=== PATIENT | male | born 1980 | race Two or more races ===

== ENCOUNTER 2017-04-05 20:13 | Emergency (ER) | payer SELFPAY ==
[2017-04-05 20:24] VITALS: BP 105/74; BMI 28.1
[2017-04-05] MEDS ORDERED: ZOFRAN INJ 4 MG VIAL IVP ONE (20:59)
[2017-04-05] MEDS ORDERED: NS 1000 ML 1,000 ML IV ONE (20:59)
[2017-04-05] MEDS ORDERED: PEPCID 20 MG IV PREMIX* 20 MG/50 ML BAG IV ONE ×2 (21:00→21:12)
--- NOTE | 2017-04-05 21:00 | DR.GENAD ---
HPI - PCP Primary Care Physician: NFD - HPI Comment HPI Comment: PATIENT DENIES BEING AROUND SOME ONE WITH SIMILAR SYMTOMS. NO RECENT TRAVEL. NOT HOLDING DOWN LIQUID. FEELS SICK AND WEAK.PATIENT HAVE HEADACHE, COUGHING AND SLIGHT CONGESTION. - Complaint/Symptoms Chief Complaint Doctors Comments: FEVER, NAUSEA, VOMITING TIMES ONE DAY. WORSE TONIGHT. Chief Complaint:: PATIENT HAS N/V/D AND GENERAL MALAISE - Nurses notes reviewed Nurses Notes Review: Yes - Source History Provided: Patient - Mode of Arrival Mode of Arrival: Ambulatory - Timing Onset of Chief Complaint: 04/05/17 Came on: Suddenly - Duration Duration: Constant Duration: Hours - Severity Severity: Moderate PMH - PMH Past Medical History: No Past Surgical History: No - Family History History of Family Medical Conditions: No - Social History Does patient currently use any type of tobacco product: No Have you used tobacco products in the last 12 months: No Type of Tobacco Use: None Does any household member use tobacco: No Alcohol Use: Occasionally Do you use any recreational Drugs:: No Lives With: Family Lives Where: Home - infectious screening In the last 2 months have you had wt loss of >10#?: NO Have you had fever, night sweats or hemotysis?: No Have you traveled outside the country in the last 6 months?: No Isolation: Standard ROS - Review of Systems Constitutional: Fever, Malaise, Weakness, Fatigue. negative: Chills, Diaphoresis Eyes: No Symptoms Reported. negative: Eye Pain, Discharge ENTM: Nose Congestion. negative: Ear Pain, Nose Discharge, Throat Pain Respiratoy: Productive Cough. negative: Non-Productive Cough, Short of Breath, Wheezing, Hemoptysis Cardiovascular: No Symptoms Reported. negative: Chest Pain Gastrointestinal/Abdominal: Abdominal Pain, Nausea, Vomiting. negative: Constipation, Diarrhea Genitourinary: No Symptoms Reported. negative: Dysuria, Frequency, Hematuria Neurological: Headache, Weakness. negative: Dizziness Musculoskeletal: Muscle Pain Integumentary: No Symptoms Reported Hematologic/Lymphatic: No Symptoms Reported Endocrine: No Symptoms Reported All Other Systems: Reviewed and Negative PE - Vital Signs Vitals: Temperature 101.5 F Pulse Rate 117 Respiratory Rate 22 Blood Pressure 105/74 O2 Sat by Pulse Oximetry 98 - General Limitations: No Limitations General Appearance: Alert - Head Head Exam: Normal Inspection - Eyes Eye exam: Normal Appearance - ENT ENT Exam: Normal External Ear Exam TM/Canal Exam: Bilateral Bulging Nose Exam: Normal Nose Exam Mouth Exam: Normal Inspection Throat Exam: Tonsillar Erythema. negative: Tonsillomegaly, Tonsillar Exudate - Neck Neck Exam: Trachea Midline - Chest Chest Inspection: Symmetric Chest Wall Rise - Respiratory Respiratory Exam: Normal Lung Sounds Bilat Respiratory Exam: Bilateral Clear to Auscultation - Cardiovascular Cardiovascular Exam: Regular Rate, Normal Rhythm, Normal Heart Sounds - Abdominal Exam Abdominal Exam: Normal Bowel Sounds, Soft. negative: Tenderness - Extremities Extremities Exam: Normal Inspection - Back Back Exam: Normal Inspection - Neurologic Neurological Exam: Alert, Oriented X3 - Skin Skin Exam: Normal Color MDM - Differential Diagnosis Differential Diagnosis: GASTRITIS, GASTROENTERITIS, BOWEL OBSTRUCTION, SINUSITIS , PHARYNGITIS Course - Treatment Treatment: SEE ORDERS. - Education/Counseling Education/Counseling: Patient, Education Educated On: Treatment, Diagnosis, Needs for Follow Up ROR - Labs Reviewed Laboratory Results Reviewed?: Yes Result Diagrams: 04/05/17 21:10 04/05/17 21:10 Laboratory: 04/05/17 21:10 Blood Blood Culture - Preliminary 04/05/17 21:13 Blood Blood Culture - Preliminary WBC 6.6 X10^3/uL (3.6-10.0) 04/05/17 21:10 RBC 5.99 X10^6/uL (4.7-6.0) 04/05/17 21:10 Hgb 18.0 g/dL (13.5-18.0) 04/05/17 21:10 Hct 50.5 % (42.0-54.0) 04/05/17 21:10 MCV 84.3 fL (80.0-100.0) 04/05/17 21:10 MCH 30.0 pg (27.0-34.0) 04/05/17 21:10 MCHC 35.6 g/dL (33.0-35.0) H 04/05/17 21:10 RDW 13.6 % (11.6-16.5) 04/05/17 21:10 Plt Count 238 X10^3/uL (150.0-450.0) 04/05/17 21:10 MPV 8.1 fL (7.4-11.0) 04/05/17 21:10 Neut % 80.9 % (42.0-75.0) H 04/05/17 21:10 Lymph % 11.7 % (21.0-51.0) L 04/05/17 21:10 Garfield % 7.2 % (0.0-13.0) 04/05/17 21:10 Eos % 0.0 % (0.9-2.9) L 04/05/17 21:10 Baso % 0.2 % (0.2-1.0) 04/05/17 21:10 Neut # 5.4 x10^3/uL (2.2-4.8) H 04/05/17 21:10 Lymph # 0.8 X10^3/uL (1.3-2.9) L 04/05/17 21:10 Garfield # 0.5 x10^3/uL (0.3-0.8) 04/05/17 21:10 Eos # 0.0 x10^3/uL (0.0-0.2) 04/05/17 21:10 Baso # 0.0 X10^3/uL (0.0-0.1) 04/05/17 21:10 Absolute Nucleated RBC 0.3 /100WBC 04/05/17 21:10 Sodium 134 mmol/L (136-145) L 04/05/17 21:10 Corrected Sodium 135 mmol/L (136-145) L 04/05/17 21:10 Potassium 3.0 mmol/L (3.5-5.1) L* 04/05/17 21:10 Chloride 97 mmol/L (98-107) L 04/05/17 21:10 Carbon Dioxide 24.8 mmol/L (21-32) 04/05/17 21:10 BUN 23 mg/dL (7-18) H 04/05/17 21:10 Creatinine 1.58 mg/dL (0.70-1.30) H 04/05/17 21:10 Est GFR (MDRD) Af Amer > 60 (>60) 04/05/17 21:10 Est GFR (MDRD) Non-Af 52 (>60) L 04/05/17 21:10 Glucose 124 mg/dL (65-99) H 04/05/17 21:10 Calcium 8.6 mg/dL (8.5-10.1) 04/05/17 21:10 Corrected Calcium TNP 04/05/17 21:10 Total Bilirubin 1.50 mg/dL (0.2-1.0) H 04/05/17 21:10 AST 31 Units/L (15-37) 04/05/17 21:10 ALT 86 Units/L (12-78) H 04/05/17 21:10 Alkaline Phosphatase 63 Units/L (46-116) 04/05/17 21:10 Total Protein 8.4 g/dL (6.4-8.2) H 04/05/17 21:10 Albumin 3.9 g/dL (3.4-5.0) 04/05/17 21:10 Globulin 4.5 g/dL (2.5-4.5) 04/05/17 21:10 Albumin/Globulin Ratio 0.9 Ratio (1.1-2.1) L 04/05/17 21:10 Amylase 28 Units/L (25-115) 04/05/17 21:10 Lipase 58 Units/L (73-393) L 04/05/17 21:10 Streptococcus Screen Positive (NEGATIVE) A 04/05/17 22:49 - XRAY XRAY Interpreted by: Radiologist XRAY Findings: REPORT DISCUSS WITH PATIENT. - Diagnosis Discharge Problem: Strep pharyngitis, Bronchitis, Hepatic steatosis Gastritis Qualifiers: Gastritis type: unspecified gastritis Chronicity: unspecified Gastritis bleeding: without bleeding Qualified Code(s): K29.70 - Gastritis, unspecified, without bleeding - Discharge Plan Disposition: HOME, SELF-CARE Condition: Stable Prescriptions: Amoxicillin [Amoxil 875 mg] 875 mg PO BID #20 tab Ondansetron HCl [Zofran Tab 4 mg] 4 mg PO Q8H PRN #12 tab PRN Reason: Nausea/Vomiting Ranitidine HCl [ZANTAC TAB 150 MG *] 150 mg PO DAILY #30 tab - Follow ups/Referrals Follow ups/Referrals: NFD,None [Primary Care Provider] - 3 days - Instructions Instructions: Strep Throat, Gastritis, Adult, [id number], Nausea and Vomiting , Adult, [id number] Additional Instructions: RETURN TO ED IF WORSE.
[2017-04-05] MEDS ORDERED: DEMEROL INJ IVP ONE (21:02)
[2017-04-05] MEDS ORDERED: TYLENOL 500 MG TAB EXTRA STRENGTH PO ONE (21:02)
[2017-04-05] MEDS ORDERED: ZOFRAN INJ 4 MG VIAL ONE (21:12)
[2017-04-05] MEDS ORDERED: NS 1000 ML 1,000 ML ONE (21:12)
[2017-04-05] MEDS ORDERED: DEMEROL INJ ONE (21:13)
[2017-04-05] MEDS ORDERED: TYLENOL 500 MG TAB EXTRA STRENGTH ONE (21:13)
[2017-04-05 21:25] LABS: LYMPHOCYTES # (AUTO) 0.8 X10^3/uL (1.3-2.9); MONOCYTES # (AUTO) 0.5 x10^3/uL (0.3-0.8)
[2017-04-05 21:35] LABS: BLOOD UREA NITROGEN 23 mg/dL (7-18); CALCIUM 8.6 mg/dL (8.5-10.1); CARBON DIOXIDE 24.8 mmol/L (21-32); CHLORIDE 97 mmol/L (98-107); COR NA(FOR HYPERGLY) 135 mmol/L (136-145); CREATININE 1.58 mg/dL (0.70-1.30); GLUCOSE 124 mg/dL (65-99); SODIUM 134 mmol/L (136-145); eGFR BLACK RACES > 60 (>60); eGFR NON BLACK RACES 52 (>60)
--- NOTE | 2017-04-05 21:36 | CT ---
CT abdomen and pelvis without contrast Indication: Nausea vomiting and diarrhea Comparison: None available Technique: Multiple axial images of the abdomen and pelvis were obtained from the lung bases to the pubic symph ysis without the administration of IV contrast. Radiation dose reduction techniques were performed utilizing adjustment for MA/kVP based on patient body size. Findings: The lung bases demonstrate scarring/atelectasis within both lower lobes. Moderate hepatic steatosis without focal hepatic lesion identified. The gallbladder, bile ducts, spleen, pancreas and adrenal g lands are normal. Neither kidney demonstrates evidence of nephrolithiasis, hydronephrosis or mass. U pper GI tract demonstrates mild fluid distension of the small bowel without distal decompression. Ur inary bladder is normal. Prostate gland is unremarkable. The rectum and colon are unremarkable aside for mild increased fluid within the proximal colon. The appendix is normal. No pelvic free fluid or adenopathy. Abdominal aorta is normal in caliber. Review of bone windows demonstrates no acute osse ous abnormality. Impression: 1.Moderate fluid distension of the entire small bowel without distal decompression along with mild f luid distension of the proximal colon is most consistent with acute enterocolitis. There is no CT ev idence of obstruction. 2. Moderate hepatic steatosis. Reported By:
[2017-04-05 21:39] LABS: ALANINE AMINOTRANSFERASE 86 Units/L (12-78); ALBUMIN 3.9 g/dL (3.4-5.0); ALKALINE PHOSPHATASE 63 Units/L (46-116); AMYLASE 28 Units/L (25-115); ASPARTATE AMINO TRANSFERASE 31 Units/L (15-37); LIPASE 58 Units/L (73-393); TOTAL PROTEIN 8.4 g/dL (6.4-8.2)
[2017-04-05 21:49] LABS: BASOPHILS % (AUTO) 0.2 % (0.2-1.0); HEMATOCRIT 50.5 % (42.0-54.0); LYMPHOCYTES % (AUTO) 11.7 % (21.0-51.0); MEAN CORPUSCULAR HGB CONC 35.6 g/dL (33.0-35.0); MEAN CORPUSCULAR VOLUME 84.3 fL (80.0-100.0); MEAN PLATELET VOLUME 8.1 fL (7.4-11.0); MONOCYTES % (AUTO) 7.2 % (0.0-13.0); NEUTROPHILS # (AUTO) 5.4 x10^3/uL (2.2-4.8); NEUTROPHILS % (AUTO) 80.9 % (42.0-75.0); PLATELET COUNT 238 X10^3/uL (150.0-450.0); RED BLOOD COUNT 5.99 X10^6/uL (4.7-6.0); RED CELL DISTRIBUTION WIDTH 13.6 % (11.6-16.5); WHITE BLOOD COUNT 6.6 X10^3/uL (3.6-10.0)
--- NOTE | 2017-04-05 22:19 | RAD ---
AP Chest Indication: Nausea and vomiting with diffuse pain Comparison: None available Findings: The trachea is midline. The cardiac silhouette is unremarkable. Linear opacities within both lung bases likely represent subsegmental atelectasis or scarring. No focal airspace opacity, pleural effu vivek or pneumothorax.. The bony thorax is unremarkable. IMPRESSION: 1. No acute cardiopulmonary abnormality. Reported By:
[2017-04-05] MEDS ORDERED: POTASSIUM CHLORIDE LIQ 20 MEQ UDC PO ONE (23:21)
[2017-04-05] MEDS ORDERED: ROCEPHIN VIAL 1 GM 1 GM in NS 50 ML IV + SPIKE MINIBAG* 50 ML IV ONE (23:23)
[2017-04-06] MEDS ORDERED: K-DUR TAB 20 MEQ PO ONE (00:05)
[2017-04-06] MEDS ORDERED: NS 50 ML IV + SPIKE MINIBAG* 50 ML IV ONE (00:05)
[2017-04-06] MEDS ORDERED: ROCEPHIN VIAL 1 GM ONE (00:06)
[2017-04-06] MEDS ORDERED: POTASSIUM CHLORIDE LIQ 20 MEQ UDC ONE (00:15)
== END 2017-04-06 01:11 | disposition home or self-care (01) ==
LOC: ER 20:13
DX: K29.70 Gastritis, unspecified, without bleeding (principal); J02.0 Streptococcal pharyngitis; K76.0 Fatty (change of) liver, not elsewhere classified
CPT/HCPCS: 36415; 71010; 74176; 80053; 82150; 83690; 85025; 87040; 87880; 96365; 96374; 96375; 99283; A4222; S0028; J0696; J2175; J2405